=== PATIENT | male | born 1940 | race American Indian/Alaskan Native ===

== ENCOUNTER 2017-12-28 10:55 | Emergency (ER) | payer MEDICARE, OTHER ==
[2017-12-28 11:08] VITALS: BMI 25.5
[2017-12-28 11:12] VITALS: TEMP 97.9
[2017-12-28 11:14] VITALS: BP 119/71; PULSE 82; RESP 16; O2SAT 97
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
== END 2017-12-28 13:05 | disposition home or self-care (01) ==
LOC: ED 10:55
DX: S49.92XA Unspecified injury of left shoulder and upper arm, initial encounter (principal); V53.5XXA Driver of pick-up truck or van injured in collision with car, pick-up truck or van in traffic accident, initial encounter; Y92.410 Unspecified street and highway as the place of occurrence of the external cause; M54.2 Cervicalgia; I25.10 Atherosclerotic heart disease of native coronary artery without angina pectoris; I10 Essential (primary) hypertension; E78.5 Hyperlipidemia, unspecified; Z87.891 Personal history of nicotine dependence

== ENCOUNTER 2018-01-09 06:37 | Day surgery (SDC) | payer MEDICARE, MEDICAID ==
[2018-01-07 08:15] VITALS: BMI 25.7
[2018-01-09] MEDS ORDERED: Lidocaine 2% Inj (20ml) ONE (06:48)
[2018-01-09] MEDS ORDERED: Phenylephrine 10 mg/ml Inj ONE (06:49)
[2018-01-09] MEDS ORDERED: Midazolam 2 MG/2 ML VIAL ONE ×2 (06:50→08:01)
[2018-01-09] MEDS ORDERED: Iohexol 350mgl/ml 50 ML ONE (06:50)
[2018-01-09] MEDS ORDERED: Nitroglycerin 50mg in D5W 50 MG/250 ML BOTTLE IV ONE (06:50)
[2018-01-09] MEDS ORDERED: Iodixanol 320 MG/ML 200 ML BOTTLE IV ONE (06:50)
[2018-01-09] MEDS ORDERED: Iodixanol 320 MG/ML 100 ML BOTTLE IV ONE (06:50)
[2018-01-09] MEDS ORDERED: HEPARIN SODIUM/NS 2,000 ML IV ONE (06:51)
[2018-01-09 07:22] LABS: CALCIUM 9.3 mg/dL (8.4-10.5)
[2018-01-09 07:23] LABS: BASO # 0.04 K/mm3 (0.0-2.0); BASO % 0.8 % (0.0-3.0); EOS # 0.2 (0.0-0.7); EOS % 3.1 % (1.5-5.0); GRAN # 2.81 (1.4-6.5); GRAN % 54.1 % (50.0-68.0); HEMOGLOBIN 13.9 g/dL (14.0-18.0); LYMPH # 1.8 (1.2-3.4); LYMPH % 34.7 % (22.0-35.0); MEAN CELL VOLUME 92.3 fl (80.0-105.0); MEAN CORPUSCULAR HEMOGLOBIN 29.7 pg (25.0-35.0); MEAN CORPUSCULAR HGB CONC 32.2 g/dl (31.0-37.0); MEAN PLATELET VOLUME 9.2 fl (7.0-11.0); MONO # 0.4 (0.1-0.6); MONO % 7.3 % (1.0-6.0); RBC 4.68 10^6/uL (3.5-6.1); RED CELL DISTRIBUTION WIDTH 13.6 % (11.5-14.5); WHITE BLOOD COUNT 5.2 10^3/ul (4.5-11.0)
[2018-01-09 07:38] LABS: INR 1.04 (0.93-1.08)
[2018-01-09] MEDS ORDERED: Sodium Chloride 0.9% 1,000 ML IV SCH (09:15)
--- NOTE | 2018-01-09 13:25 | CARDCATH ---
PROCEDURE DATE: 01/09/2018 CARDIAC CATHETERIZATION AND PTCA HISTORY: The patient is a 77-year-old male who presents with angina. Stress test is abnormal. The patient has previous cardiac history of PTCA and stent in the past. Because of this, cardiac catheterization was recommended. PROCEDURE: Left heart catheterization with coronary arteriography and left ventriculogram. The right femoral artery was cannulated with a 6-Bengali sheath. There were no complications. I performed moderate sedation which included the presence of an independent trained observer that assisted in monitoring the patient's level of consciousness and physiologic status. After administration of Versed and fentanyl, my intra-service time was 30 minutes. The findings on catheterization revealed a left ventricle that was globally hypokinetic. Estimated ejection fraction of 35%-40%. His coronary anatomy revealed a right dominant circulation. The RCA revealed diffuse intimal irregularities without critical lesions. The left main artery was unremarkable. The LAD revealed three stents. The proximal and distal stents were patent. The mid stent revealed an 80% in-stent restenosis. The circumflex artery and obtuse marginal branches were free of significant disease. The patient was started on intravenous Angiomax on the fluoroscopic guide, the guiding catheter was placed in the ostium of the left main artery. An 0.014 ATW wire was used to cross the lesion. A 2.0 balloon was utilized to predilate the lesion. A 2.25 x 15 mm drug-eluting stent was placed and deployed at 14 atmospheres of pressure. After balloon deflation and removal, repeat coronary arteriography revealed an excellent result with no residual stenosis and SHAISTA III flow. Angio-Seal was used to close the femoral artery site. The patient tolerated the procedure well. In summary, the procedure was successful for PTCA and stent of the mid LAD in-stent restenosis. Cardiac catheterization reveals patent stents in the proximal portion of the LAD, patent stents in the distal portion of the LAD and in-stent restenosis of the mid LAD which was manipulated with a drug-eluting stent. LV function is abnormal with an EF of 35%-40%. Given these findings, the patient will need to remain on aspirin indefinitely and Plavix for at least a year and undergo a strict cardiac risk reduction program. Karthik Velez MD
--- NOTE | 2018-01-09 17:47 | CARD ---
APPROVED REPORT EKG Measurement Heart [id number] <Conclusion> Sinus rhythm with 1st degree AV block Left axis deviation Possible Anteroseptal infarct, age undetermined Abnormal ECG
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
[2018-01-10 00:22] VITALS: RESP 18
[2018-01-10 05:50] VITALS: BP 123/65; PULSE 70; TEMP 98; O2SAT 98
[2018-01-10 06:54] LABS: BASO # 0.04 K/mm3 (0.0-2.0); BASO % 0.7 % (0.0-3.0); EOS # 0.2 (0.0-0.7); GRAN # 3.51 (1.4-6.5); GRAN % 58.3 % (50.0-68.0); HEMOGLOBIN 14.1 g/dL (14.0-18.0); LYMPH # 1.9 (1.2-3.4); LYMPH % 31.7 % (22.0-35.0); MEAN CELL VOLUME 92.5 fl (80.0-105.0); MEAN CORPUSCULAR HEMOGLOBIN 29.5 pg (25.0-35.0); MEAN CORPUSCULAR HGB CONC 31.9 g/dl (31.0-37.0); MEAN PLATELET VOLUME 9.4 fl (7.0-11.0); MONO # 0.4 (0.1-0.6); MONO % 6.3 % (1.0-6.0); RBC 4.78 10^6/uL (3.5-6.1); RED CELL DISTRIBUTION WIDTH 13.5 % (11.5-14.5)
[2018-01-10 07:16] LABS: ALB/GLOB RATIO 1.2 (1.1-1.8); ALBUMIN 3.5 g/dL (3.0-4.8)
--- NOTE | 2018-01-10 10:07 | CARD ---
APPROVED REPORT EKG Measurement Heart [id number] 210P53 [id number] <Conclusion> Sinus rhythm with 1st degree AV block Possible Anteroseptal infarct, age undetermined Abnormal ECG
--- NOTE | 2018-01-10 11:58 | PN ---
DATE: 01/10/2018 CARDIOLOGY FOLLOWUP SUBJECTIVE: The patient is asymptomatic status post PTCA and stent of the mid LAD. PHYSICAL EXAMINATION: VITAL SIGNS: Blood pressure is 123/65 with heart rates in the 70s. NECK: Negative JVD. LUNGS: Without rales. HEART: With S1, S2. EXTREMITIES: Without edema. LABORATORY DATA: Potassium is 4.0, creatinine is normal. Hemoglobin is 14. IMPRESSION: 1. Stable post percutaneous transluminal coronary angioplasty and stent. 2. History of multivessel percutaneous transluminal coronary angioplasty. 3. Hypertension. 4. Hypercholesterolemia. PLAN: Given these findings, we will continue the patient on his aspirin, Plavix and statin therapy. The patient can be discharged today. Followup has been given to the patient. Karthik Velez MD
--- NOTE | 2018-01-10 14:29 | DS ---
HISTORY OF PRESENT ILLNESS: He had a cardiac cath with Dr. Velez the other day. He had a stent placed. He stayed overnight. He is doing well. He is on Ecotrin, Lipitor, Plavix. He is comfortable. No complaints of chest pain, shortness of breath. No abdominal pain and he is walking. PHYSICAL EXAMINATION: VITAL SIGNS: He has a 98 temp, 70 pulse, 123/65 blood pressure, 18 respiratory rate, 98% O2 sat on room air. HEENT: Head is atraumatic, normocephalic. Throat is moist. NECK: Supple. HEART: Regular rate. LUNGS: Clear to auscultation. ABDOMEN: Soft. EXTREMITIES: No edema. LABORATORY DATA: He has a 6 white count, 14.1 hemoglobin, 44.2 hematocrit with 208 platelets. INR is 1.04. 142 sodium, potassium is 4. BUN 13, creatinine 1.4, better. GFR is 49, sugar is 98, calcium is 9, total bili is 0.9, AST is 31, ALT is 33, alk phos 59, total protein 6.5, albumin is 3.5. ASSESSMENT AND PLAN: He will be discharged today after Dr. Velez sees him. He should follow up with his primary care doctor in about a week. He is here for coronary artery disease with stent placement and also has gastroesophageal reflux disease. Amado Carlos DO
--- NOTE | 2018-01-10 17:29 | CARD ---
APPROVED REPORT EKG Measurement Heart [id number] <Conclusion> Sinus rhythm with 1st degree AV block Left axis deviation Septal infarct, age undetermined Abnormal ECG
== END 2018-01-10 12:33 | disposition home or self-care (01) ==
LOC: CATH 06:37 → 2RNO 09:10 → CATH 01-10 12:33
PROVIDERS: ATTEND Internal Medicine Cardiovascular Disease
DX: I25.119 Atherosclerotic heart disease of native coronary artery with unspecified angina pectoris (principal); K21.9 Gastro-esophageal reflux disease without esophagitis; T82.855A Stenosis of coronary artery stent, initial encounter; E78.00 Pure hypercholesterolemia, unspecified; I10 Essential (primary) hypertension; I44.0 Atrioventricular block, first degree; Z79.02 Long term (current) use of antithrombotics/antiplatelets; Z79.82 Long term (current) use of aspirin; Z95.5 Presence of coronary angioplasty implant and graft; M19.90 Unspecified osteoarthritis, unspecified site; N40.1 Benign prostatic hyperplasia with lower urinary tract symptoms; R33.8 Other retention of urine; Y84.8 Other medical procedures as the cause of abnormal reaction of the patient, or of later complication, without mention of misadventure at the time of the procedure
CPT/HCPCS: 36415 ×2; 80048; 80053; 85025 ×2; 85027; 85610; 85730; 86850; 86900; 93005 ×2; 93458; 99152; 99153; C1725; C1760; C1769 ×2; C1874; C1887; C2629; C9600; J0583; J1644; J2250; J3010; J7040; Q9967 ×2